=== PATIENT | male | born 1985 | race Caucasian/White ===

== ENCOUNTER 2019-12-06 20:44 | Emergency (ER) | payer BC ==
[2019-12-06] MEDS ORDERED: HYDROmorphone 1 MG/ML Syringe IM ONE (20:58)
[2019-12-06] MEDS ORDERED: Promethazine 25 MG/ML SDV IM ONE (20:58)
--- NOTE | 2019-12-06 21:01 | EDM.PDOC ---
ED HPI GENERAL MEDICAL PROBLEM - General Chief Complaint: Upper Extremity Injury/Pain Stated Complaint: ARM INJURY Time Seen by Provider: 12/06/19 20:54 Source of Information: Reports: Patient History Limitations: Reports: No Limitations - History of Present Illness INITIAL COMMENTS - FREE TEXT/NARRATIVE: Patient's unfortunate 34-year-old male who presents emergency Department today with complaint of right bicep pain. Patient reports he was in his normal state of health approximately 20 minute prior to arrival when he was attempting to lift some furniture and felt a "tear" in his right bicep. Since that time patient has had pain and deformity to his right bicep. Pain is worse with range of motion or palpation improves with rest does not alleviate. No fever no chills no nausea no vomiting no shortness of breath distal neurovascular is intact Right Upper Arm Pain Score (Numeric/FACES): 7 - Related Data Allergies Allergy/AdvReac Type Severity Reaction Status Date / Time morphine Allergy Change Verified 12/06/19 20:56 Mental Status Home Meds: Home Meds Acetaminophen with Codeine [Tylenol with Codeine #3 Tablet] 1 each PO Q4H PRN # 20 tablet 12/06/19 [Rx] Social & Family History - Tobacco Use Smoking Status *Q: Current Every Day Smoker Years of Tobacco use: 10 Packs/Tins Daily: 1 - Caffeine Use Caffeine Use: Reports: Coffee - Recreational Drug Use Recreational Drug Use: No Review of Systems - Review of Systems Review Of Systems: See Below Constitutional: Denies: Chills, Fever Musculoskeletal: Reports: Arm Pain ED EXAM, GENERAL - Physical Exam Exam: See Below Exam Limited By: No Limitations General Appearance: Alert, WD/WN, Mild Distress Nose: Normal Inspection, Normal Mucosa, No Blood Throat/Mouth: Normal Inspection, Normal Lips, Normal Teeth, Normal Gums, Normal Oropharynx, Normal Voice, No Airway Compromise Neck: Normal Inspection, Supple, Non-Tender, Full Range of Motion Respiratory/Chest: No Respiratory Distress, Lungs Clear, Normal Breath Sounds, No Accessory Muscle Use, Chest Non-Tender Cardiovascular: Normal Peripheral Pulses, Regular Rate, Rhythm, No Edema, No Gallop, No JVD, No Murmur, No Rub GI/Abdominal: Normal Bowel Sounds, Soft, Non-Tender, No Organomegaly, No Distention, No Abnormal Bruit, No Mass Back Exam: Normal Inspection, Full Range of Motion, NT Extremities: Other (deformation of right bicep muscle, distal neurovascular intact) Neurological: Alert Skin Exam: Warm, Dry Course - Vital Signs Last Recorded V/S: Last Vital Signs Temp 96.5 F 12/06/19 20:54 Pulse 91 12/06/19 20:54 Resp 20 12/06/19 20:54 BP 157/105 H 12/06/19 20:54 Pulse Ox 98 12/06/19 20:54 - Orders/Labs/Meds Meds: Medications Discontinued Medications Generic Name Dose Route Start Last Admin Trade Name Freq PRN Reason Stop Dose Admin Hydromorphone HCl 1 mg 12/06/19 20:58 Dilaudid IM 12/06/19 20:59 ONETIME ONE Promethazine HCl 25 mg 12/06/19 20:58 Phenergan IM 12/06/19 20:59 ONETIME ONE Departure - Departure Time of Disposition: 21:01 Disposition: Home, Self-Care 01 Condition: Good Clinical Impression: Biceps tendon rupture Qualifiers: Encounter type: initial encounter Laterality: right Qualified Code(s): S46.211A - Strain of muscle, fascia and tendon of other parts of biceps, right arm, initial encounter - Discharge Information Prescriptions: Acetaminophen with Codeine [Tylenol with Codeine #3 Tablet] 1 each PO Q4H PRN # 20 tablet PRN Reason: Pain Instructions: Biceps Tendon Disruption (Proximal) Rehab-[facility] Referrals: Say Reyes MD [Primary Care Provider] - Hu Amezquita MD [Physician] - Forms: ED Department Discharge Additional Instructions: Home, rest, return as needed for worsening condition Sepsis Event Note - Evaluation Sepsis Screening Result: No Definite Risk - Focused Exam Vital Signs: Vital Signs Temp Pulse Resp BP Pulse Ox 12/06/19 20:54 96.5 F 91 20 157/105 H 98 Date Exam was Performed: 12/06/19 Time Exam was Performed: 21:01
== END 2019-12-06 21:12 | disposition home or self-care (01) ==
LOC: JD.ED 20:44
DX: S46.211A Strain of muscle, fascia and tendon of other parts of biceps, right arm, initial encounter (principal); F17.210 Nicotine dependence, cigarettes, uncomplicated; Z88.5 Allergy status to narcotic agent; X50.0XXA Overexertion from strenuous movement or load, initial encounter
CPT/HCPCS: 96372; 99283; J1170; J2550

== ENCOUNTER 2020-08-15 19:06 | Emergency (ER) | payer BC ==
[2020-08-15] MEDS ORDERED: FLU VACC QS2020-21(6MOS UP)/PF 60 MCG/0.5 ML SYRINGE IM ONE (19:30)
== END 2020-08-15 19:30 ==
LOC: JD.ED 19:06
DX: Z53.21 Procedure and treatment not carried out due to patient leaving prior to being seen by health care provider (principal)